=== PATIENT | female | born 1950 | race Caucasian/White ===

== ENCOUNTER 2019-10-10 09:57 | Outpatient (CLI) | payer MEDICARE ==
[2019-10-10] MEDS ORDERED: VENL75TA PO (10:38)
[2019-10-10] MEDS ORDERED: TRAZ50TA66 PO (10:38)
[2019-10-10] MEDS ORDERED: POTA20TA6 PO (10:38)
[2019-10-10] MEDS ORDERED: CHOL10003 PO (10:38)
[2019-10-10] MEDS ORDERED: UBID200C35 PO (10:38)
[2019-10-10] MEDS ORDERED: RHUB4TAB PO (10:38)
[2019-10-10] MEDS ORDERED: LEVO25TA4 PO (10:38)
[2019-10-10] MEDS ORDERED: LOSA25TA25 PO (10:38)
[2019-10-10] MEDS ORDERED: HYDR25TA6 PO (10:38)
[2019-10-10 11:06] LABS: CALCIUM 10.1 mg/dL (8.5-10.1); CHLORIDE 104 mmol/L (98-107)
[2019-10-10 11:21] LABS: ALANINE AMINOTRANSFERASE 25 U/L (12-78); ALBUMIN 3.9 g/dL (3.4-5.0); ALKALINE PHOSPHATASE 109 U/L (45-117); ANION GAP 5 mmol/L (5-15); BILIRUBIN,TOTAL 0.3 mg/dL (0.2-1.0); CREATININE 0.91 mg/dL (0.55-1.02); TOTAL PROTEIN 7.8 g/dL (6.4-8.2)
== END 2019-10-10 23:59 | disposition home or self-care (01) ==
LOC: STAR 09:57
PROVIDERS: ATTEND Student in an Organized Health Care Education/Training Program
DX: Z01.818 Encounter for other preprocedural examination (principal)
CPT/HCPCS: 36415; 80053; 93005; U0001

== ENCOUNTER 2019-10-14 05:58 | Day surgery (SDC) | payer MEDICARE ==
[~2019-10-14] VITALS: Ht 162.6 cm; Wt 62.1 kg
[~2019-10-14 05:58] MED LIST: CHOL10003 PO; HYDR25TA6 PO; LEVO25TA4 PO; LOSA25TA25 PO; POTA20TA6 PO; RHUB4TAB PO; TRAZ50TA66 PO; UBID200C35 PO; VENL75TA PO
[2019-10-14] MEDS ORDERED: LACTATED RINGERS 1,000 ML IV SCH (06:40)
[2019-10-14 06:44] VITALS: BP 118/75
[2019-10-14] MEDS ORDERED: CHLORHEXIDINE 15 ML UDC ONE (06:47)
[2019-10-14] MEDS ORDERED: CHLORHEXIDINE 15 ML UDC MM ONE (07:00)
[2019-10-14] MEDS ORDERED: FENTANYL PF 250 MCG/5ML ONE (07:28)
[2019-10-14] MEDS ORDERED: PROPOFOL 50 ML ONE (07:28)
[2019-10-14] MEDS ORDERED: MIDAZOLAM 1 MG/ML, 2ML ONE (07:28)
[2019-10-14] MEDS ORDERED: MIDAZOLAM 1 MG/ML, 2ML IV PRN (08:30)
[2019-10-14] MEDS ORDERED: MEPERIDINE/PF 25MG/0.5ML IVPush PRN (08:30)
[2019-10-14] MEDS ORDERED: morphine SULFATE 10 MG/ML, 1ML IVPush PRN (08:30)
[2019-10-14] MEDS ORDERED: EPHEDRINE 50 MG/ML, 1ML IVPush PRN (08:30)
[2019-10-14] MEDS ORDERED: PROMETHAZINE 25 MG/ML, 1ML IVPush PRN (08:30)
[2019-10-14] MEDS ORDERED: ONDANSETRON 2MG/ML, 2ML IVPush PRN (08:30)
[2019-10-14] MEDS ORDERED: OXYcodone 5 MG/5 ML ORAL.SOL UDC PO PRN (08:30)
[2019-10-14] MEDS ORDERED: DIPHENHYDRAMINE 50 MG/ML, 1ML IVPush PRN (08:30)
[2019-10-14] MEDS ORDERED: EPHEDRINE 50 MG/ML, 1ML IM PRN (08:30)
[2019-10-14] MEDS ORDERED: ACETAMINOPHEN 325 MG TABLET PO PRN (08:30)
[2019-10-14] MEDS ORDERED: DIAZEPAM 5 MG/ML, 2ML IVPush PRN (08:30)
[2019-10-14] MEDS ORDERED: ONDANSETRON 2MG/ML, 2ML ONE (08:40)
[2019-10-14] MEDS ORDERED: DEXAMETHASONE 4 MG/ML, 1ML ONE (08:40)
[2019-10-14] MEDS ORDERED: SUCCINYLCHOLINE 20 MG/ML, 10ML ONE (08:40)
[2019-10-14] MEDS ORDERED: ROCURONIUM 10MG/ML,5ML ONE (08:40)
[2019-10-14 09:24] LABS: 10MIN %DROP IOPTH 75 %; 5MIN %DROP IOPTH 54 %; IOPTH BASELINE 149 pg/mL
[2019-10-14] MEDS ORDERED: ACETAMINOPHEN 650 MG/20.3 ML UDC ONE (09:45)
[2019-10-14] MEDS ORDERED: OXYcodone 5 MG/5 ML ORAL.SOL UDC ONE (09:46)
[2019-10-14] MEDS ORDERED: FENTANYL PF 100 MCG/2ML ONE (09:46)
[2019-10-14] MEDS: FENTANYL PF 100 MCG/2ML IV PRN ×2 (09:55→10:15)
== END 2019-10-14 11:50 | disposition home or self-care (01) ==
LOC: OUT 05:58
PROVIDERS: ATTEND Surgery
DX: E21.0 Primary hyperparathyroidism (principal); Z11.59 Encounter for screening for other viral diseases; I10 Essential (primary) hypertension; E03.9 Hypothyroidism, unspecified; M19.90 Unspecified osteoarthritis, unspecified site; Z79.890 Hormone replacement therapy; Z79.899 Other long term (current) drug therapy; Z87.891 Personal history of nicotine dependence; Z87.442 Personal history of urinary calculi; Z88.2 Allergy status to sulfonamides; Z98.890 Other specified postprocedural states; Z82.49 Family history of ischemic heart disease and other diseases of the circulatory system; Z80.1 Family history of malignant neoplasm of trachea, bronchus and lung; Z83.3 Family history of diabetes mellitus
CPT/HCPCS: 36415; 60500; 83970; 88305; 88331; C1760; J0330; J1100; J2250; J2405; J2704; J3010; J7120; U0001